=== PATIENT | male | born 1980 | race African-American/Black ===

== ENCOUNTER 2022-12-08 17:23 | Emergency (ER) | payer BC ==
[2022-12-08] MEDS ORDERED: HYDROcodone/Acetaminophen 5/325 mg Tablet ONE (18:13)
== END 2022-12-08 18:34 | disposition home or self-care (01) ==
LOC: CSHERS 17:23
DX: N50.812 Left testicular pain (principal); I10 Essential (primary) hypertension
CPT/HCPCS: 99283